=== PATIENT | male | born 1960 | race Caucasian/White ===

== ENCOUNTER 2025-08-05 16:24 | Emergency (ER) | payer OTHER, MEDICARE, SELFPAY ==
[2025-08-05 17:02] VITALS: BP 167/94; PULSE 66; TEMP 37; O2SAT 97; BMI 26.6
--- NOTE | 2025-08-05 17:51 | XR_ITS ---
The [address] [address] Patient Name: ТАТЬЯНА KENNY MRN: [id number] date: 1960 Sex: M Assigned Patient Location: ER Current Patient Location: ED.MAIN Accession/Order Number: [id number] Exam Date: 08/05/2025 17:55 Report Date: 08/05/2025 18:40 At the request of: AYANA CHANG MD Procedure: XR foot RT min 3V RIGHT FOOT - 3 views CLINICAL HISTORY: injury dropped weight on foot COMPARISON: None FINDINGS: Mild degenerative changes first MTP joint. No fractures or dislocations. Soft tissues unremarkable. XR/XR foot RT min 3V IMPRESSION: NEGATIVE ACUTE OSSEOUS ABNORMALITY. Impression dictated by: Maldonado Girard M.D. 08/05/2025 6:40 PM Dictation Location: [place] [address] Electronically authenticated by: [id number] Y Date: 08/05/2025 18:40
--- NOTE | 2025-08-05 19:51 | ED_ITS ---
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 He was wearing leather boots at the time. He reports throbbing pain over the top of the foot, worse with walking. No numbness, tingling, or open wounds. No other injuries reported. Related Data Home Medications ?Medication ?Instructions ?Recorded ?Confirmed No Known Home Medications 08/05/2507/16 Allergies Allergy/AdvReac Type Severity Reaction Status Date / Time No Known Drug Allergies Allergy Verified 08/05/25 17:02 Opioid HPI Opioid Management Most Recent Pain and Opioid Data: Last Pain Scale 8 Today, 17:52 PFSH PFSH Social History Little interest or pleasure in doing things: not at all Feeling down, depressed, or hopeless: not at all Exam Narrative Exam Narrative: General: Alert, cooperative, in no acute distress Vital Signs: Stable Heart: Regular rate and rhythm, no murmurs, rubs, or gallops Lungs: Clear to auscultation bilaterally, no wheezes, rales, or rhonchi, no increased work of breathing Neuro: * Alert and oriented ?3 * Motor strength intact in all extremities * Sensation intact to light touch distally in the right foot * Normal gait (mild antalgic due to pain) Right Foot: * Swelling and contusion over dorsal aspect, most prominent over 2nd?3rd metatarsals * No deformity * No open wounds * Full range of motion of toes and ankle * Cap refill and distal pulses intact Ankle: No tenderness or swelling Skin: No lacerations or open wounds Constitutional Vital Signs, click to edit/add: Last Vital Signs Temp 98.6 F 08/05/25 17:02 Pulse 66 08/05/25 17:02 Resp 16 08/05/25 17:02 BP 167/94 H 08/05/25 17:02 Pulse Ox 97 08/05/25 17:02 O2 Del Method Room Air 08/05/25 17:02 Course Vital Signs Vital signs: Vital Signs Temperature 98.6 F 08/05/25 17:02 Pulse Rate 66 08/05/25 17:02 Respiratory Rate 16 08/05/25 17:02 Blood Pressure 167/94 H 08/05/25 17:02 Pulse Oximetry 97 08/05/25 17:02 Oxygen Delivery Method Room Air 08/05/25 17:02 Temperature 98.6 F 08/05/25 17:02 Pulse Rate 66 08/05/25 17:02 Respiratory Rate 16 08/05/25 17:02 Blood Pressure 167/94 H 08/05/25 17:02 Pulse Oximetry 97 08/05/25 17:02 Oxygen Delivery Method Room Air 08/05/25 17:02 MDM - Extremity Injury (Lower) MDM Narrative Medical decision making narrative: MDM: Patient presents with blunt trauma to the right foot. Exam shows localized contusion and swelling without deformity or neurovascular compromise. Imaging negative for fracture. Most likely diagnosis is foot contusion/soft tissue injury. Discussed conservative management including rest, ice, compression, and elevation. Advised limited weight-bearing as tolerated. Provided return precautions for worsening pain, swelling, inability to walk, numbness/tingling, or any new symptoms. Patient verbalized understanding and is agreeable to plan. Differential Diagnosis: * Foot contusion/soft tissue injury (most likely) * Occult metatarsal fracture (less likely given negative x-ray, but possible) * Lisfranc injury (less likely ? no midfoot instability, patient able to ambula te) * Tendon or ligament injury (possible, monitor for worsening symptoms) * * * Medical Records Attestation: I reviewed the patient's medical records. Imaging Data xr: Attestation: I have reviewed the pertinent imaging results. Radiologist's impression: ITS Impressions Foot X-Ray 08/05/25 17:51 IMPRESSION: NEGATIVE ACUTE OSSEOUS ABNORMALITY. Impression dictated by: Maldonado Girard M.D. 08/05/2025 6:40 PM Dictation Location: [place] [address] Electronically authenticated by: [id number] Y Date: 08/05/2025 18:40 Discharge Plan Discharge Chief Complaint: Extremity Injury, Lower Clinical Impression: Contusion of foot, right Patient Disposition: Home, Self-Care Time of Disposition Decision: 19:55 Condition: Good Prescriptions / Home Meds: No Action No Known Home Medications Print Language: Haitian Instructions: Foot Contusion (ED) Additional Instructions: After Visit Summary ? Foot Contusion What We Found Today: * You have a bruised and swollen foot from dropping a heavy object on it. * Your x-ray did not show any broken bones. What To Do At Home: * Rest: Avoid activities that cause pain. * Ice: Apply ice packs 20 minutes at a time, several times a day for the first 48 hours. * Elevation: Keep your foot raised on pillows when sitting or lying down to reduce swelling. * Compression: Wear a snug (not tight) elastic bandage if comfortable. * Pain: Take [place]tac-ebr[place] acetaminophen (Tylenol) or ibuprofen (Motrin/Advil) as needed. When To Return: * Severe pain that is not controlled with medication * Numbness, tingling, or inability to move your toes * Increased swelling, bruising, or redness * Inability to bear weight or walk Follow-Up: * If pain does not improve in 5?7 days, follow up with your primary care doctor or an orthopedic provider for re-evaluation. Referrals: Physician,Non-Staff, [Primary Care Provider] - 1 week Bob Metz MD [Physician, Orthopedics] - 1 week Referral Note: If worsen or persists Discharge Date/Time: 08/05/25 20:09
== END 2025-08-05 20:09 | disposition home or self-care (01) ==
PROVIDERS: Emergency Provider Emergency Medicine
DX: S90.31XA Contusion of right foot, initial encounter (principal); W22.8XXA Striking against or struck by other objects, initial encounter
CPT/HCPCS: 73630; 99283